=== PATIENT | female | born 1930 | race Caucasian/White ===

== ENCOUNTER 2016-07-06 10:03 | Day surgery (SDC) | payer MEDICARE, OTHER ==
[~2016-07-06] VITALS: Ht 152.4 cm
--- NOTE | 2016-07-07 08:12 | OR ---
ADMIT: 07/06/2016 RM/LOC: [facility] MR#: [id number] [address] [facility] [address] [place] [phone] YUSUF SAMAYOA [address] [place] [address] Operative/Delivery Room Report SEX: F AGE: 86 : 1930 SURGERY DATE: 07/06/2016 SURGEON: Quang Bruner MD SPECIAL SERVICES DIRECTOR: None. PREOPERATIVE DIAGNOSES: 1. Lumbar spondylosis. 2. Lumbago. POSTOPERATIVE DIAGNOSES: 1. Lumbar spondylosis. 2. Lumbago. PROCEDURE PERFORMED: Bilateral lumbar medial branch block at L3, L4, L5, and S1 levels. INDICATION FOR THE PROCEDURE: The patient is a pleasant female with history of chronic low back pain secondary to above-mentioned diagnoses, comes here for planned lumbar medial branch block. ANESTHESIA: Local without sedation. ESTIMATED BLOOD LOSS: Zero. COMPLICATIONS: None immediately evident. DESCRIPTION OF THE PROCEDURE: After the patient was seen in the preoperative area, vital signs were taken. Prior to the procedure, the risks, benefits, and alternative therapies were discussed at length. The patient's consent was obtained and updated. The patient was taken to the fluoroscopy suite and placed on the fluoroscopy table in a prone position. Pressure points were padded to comfort. Monitors were applied and a timeout performed. The lumbosacral area was prepped and draped sterilely using ChloraPrep. C-arm fluoroscopy was then brought in to identify the junction of the pedicular and transverse process. Then lidocaine 1% was applied; approximately 1 mL was used to anesthetize the skin and underlying subcutaneous tissue at bilateral L3, L4, L5 and S1 levels. At each level, a 3.5 inch 22-gauge spinal needle was used. The needle was then advanced to make contact with the superior articular facet at each level, and then needle was placed between the junction ADMIT: 07/06/2016 RM/LOC: [facility] MR#: [id number] [address] [facility] [address] [place] [phone] SAMAYOA YUSUF Claudia [address] [place] [address] Operative/Delivery Room Report SEX: F AGE: 86 : 1930 of the superior articular facet and the transfer process. Then the patient received 0.5 mL of 0.25% Marcaine with approximately 40 mg of Depo-Medrol at each level. The patient had reproduction of typical pain at each level. Then we moved on to the left side; we did the same procedure. The patient tolerated the procedure well. The patient was brought to the PACU where she recovered nicely without any complication. PLAN: The patient was examined after 20 minutes and had 60% reduction of pain. Range of motion, mainly extension, went from 10 degrees of extension to 20 degrees of extension. Discharge instructions were given. Followup as scheduled. The patient was discharged with a ambulette driver. Quang Bruner MD/ ernesto JOB #: [id number] CC: Quang Bruner, Attending Physician Ye Parra, Family Physician
== END 2016-07-06 12:40 | disposition home or self-care (01) ==
LOC: SSS 10:03
PROC: BR16YZZ Fluoroscopy of Lumbar Facet Joint(s) using Other Contrast (ICD-10-PCS; principal; 2016-07-06)
PROC: 3E0T33Z Introduction of Anti-inflammatory into Peripheral Nerves and Plexi, Percutaneous Approach (ICD-10-PCS; principal; 2016-07-06)
PROC: 3E0T3BZ Introduction of Anesthetic Agent into Peripheral Nerves and Plexi, Percutaneous Approach (ICD-10-PCS; principal; 2016-07-06)
DX: G89.29 Other chronic pain (principal); M47.816 Spondylosis without myelopathy or radiculopathy, lumbar region; G56.03 Carpal tunnel syndrome, bilateral upper limbs; M54.16 Radiculopathy, lumbar region; M48.06 Spinal stenosis, lumbar region; M46.1 Sacroiliitis, not elsewhere classified; Z88.6 Allergy status to analgesic agent; Z88.8 Allergy status to other drugs, medicaments and biological substances; Z79.899 Other long term (current) drug therapy

== ENCOUNTER 2016-07-20 08:25 | Day surgery (SDC) | payer MEDICARE, OTHER ==
[~2016-07-20] VITALS: Ht 152.4 cm; Wt 61.3 kg
--- NOTE | 2016-07-21 08:10 | OR ---
ADMIT: 07/20/2016 RM/LOC: [facility] MR#: [id number] [address] [facility] [address] [place] [phone] YUSUF SAMAYOA [address] [place] [address] Operative/Delivery Room Report SEX: F AGE: 86 : 1930 SURGERY DATE: 07/20/2016 SURGEON: Quang Bruner MD MACHINIST CLASS B: None. PREOPERATIVE DIAGNOSES: 1. Low back pain. 2. Lumbar spondylosis. POSTOPERATIVE DIAGNOSES: 1. Low back pain. 2. Lumbar spondylosis. PROCEDURE PERFORMED: Bilateral L3, L4, L5, and S1 medial branch blocks. INDICATION FOR THE PROCEDURE: The patient is a pleasant female with history of chronic low back pain secondary to above-mentioned diagnoses comes here for planned bilateral lumbar medial branch block. ANESTHESIA: Local without sedation. ESTIMATED BLOOD LOSS: Zero. COMPLICATIONS: None immediately evident. DESCRIPTION OF THE PROCEDURE: After the patient was seen in the preoperative area, vital signs were taken. Prior to the procedure, the risks, benefits, and alternative therapies were discussed at length. The patient's consent was obtained and updated. The patient was taken to the fluoroscopy suite and placed on the fluoroscopy table in a prone position. Pressure points were padded to comfort. Monitors were applied and a timeout performed. The lumbosacral area was prepped and draped sterilely using ChloraPrep. C-arm fluoroscopy was then brought in to identify the junction of the pedicular and transverse process. Then lidocaine 1% was applied; approximately 1 mL was used to anesthetize the skin and underlying subcutaneous tissue at bilateral L3, L4, L5 and S1 levels. At each level, a 3.5 inch 22-gauge spinal needle was used. The needle was then advanced to make contact with the superior articular facet at each level, and then needle was placed between the junction ADMIT: 07/20/2016 RM/LOC: [facility] MR#: [id number] [address] [facility] [address] [place] [phone] YUSUF SAMAYOA [facility] [place] [address] Operative/Delivery Room Report SEX: F AGE: 86 : 1930 of the superior articular facet and the transfer process. Then the patient received 0.5 mL of 0.25% Marcaine with approximately 40 mg of Depo-Medrol at each level. The patient had reproduction of her typical pain at each level. Then we moved on to the left side and repeated the same procedure. The patient tolerated the procedure well. The patient was brought to the PACU where she recovered nicely without any complication. PLAN: The patient was examined after 20 minutes and had 60% reduction of pain. Range of motion, mainly extension, went from 10 degrees of extension to 15 degrees of extension. Discharge instructions were given. Followup as scheduled. The patient was discharged with a team cdl driver. Quang Bruner MD/ ernesto JOB #: [id number] CC: Quang Bruner, Attending Physician Ye Parra, Family Physician
== END 2016-07-20 10:26 | disposition home or self-care (01) ==
LOC: SSS 08:25
PROC: BR16YZZ Fluoroscopy of Lumbar Facet Joint(s) using Other Contrast (ICD-10-PCS; principal; 2016-07-20)
PROC: 3E0T3BZ Introduction of Anesthetic Agent into Peripheral Nerves and Plexi, Percutaneous Approach (ICD-10-PCS; principal; 2016-07-20)
PROC: 3E0T33Z Introduction of Anti-inflammatory into Peripheral Nerves and Plexi, Percutaneous Approach (ICD-10-PCS; principal; 2016-07-20)
DX: G89.29 Other chronic pain (principal); M47.26 Other spondylosis with radiculopathy, lumbar region; M48.06 Spinal stenosis, lumbar region; Z79.899 Other long term (current) drug therapy; Z88.6 Allergy status to analgesic agent

== ENCOUNTER 2016-08-09 07:54 | Day surgery (SDC) | payer MEDICARE, OTHER ==
[~2016-08-09] VITALS: Ht 152.4 cm; Wt 63.0 kg
--- NOTE | 2016-08-11 08:14 | OR ---
ADMIT: 08/09/2016 RM/LOC: [facility] MR#: [id number] [address] [place] [phone] YUSUF SAMAYOA [address] [address] Operative/Delivery Room Report SEX: F AGE: 86 : 1930 SURGERY DATE: 08/09/2016 SURGEON: Quang Bruner MD SLITTER CUT OFF OPERATOR: None. PREPROCEDURE DIAGNOSES: 1. Lumbar spondylosis. 2. Lumbago. POSTPROCEDURE DIAGNOSES: 1. Lumbar spondylosis. 2. Lumbago. PROCEDURE PERFORMED: Right L3, L4, L5 and S1 radiofrequency thermocoagulation. INDICATIONS FOR PROCEDURE: The patient is a pleasant female with history of chronic low back pain secondary to above-mentioned diagnoses comes here for planned right-sided lumbar radiofrequency ablation. ANESTHESIA: Local without sedation. ESTIMATED BLOOD LOSS: Zero. COMPLICATIONS: None immediately evident. DESCRIPTION OF THE PROCEDURE: After the patient was seen in the preoperative area, vitals signs were taken. Prior to the procedure, the risks, benefits, and alternative therapies were discussed at length. Patient consent was obtained and updated. The patient was taken to the fluoroscopy suite and placed on the fluoroscopy table in the prone position. Pressure points were padded to comfort, monitors applied, and a timeout performed. ADMIT: 08/09/2016 RM/LOC: [facility] MR#: [id number] [address] [place] [id number] YUSUF SAMAYOA [address] [id number] Operative/Delivery Room Report SEX: F AGE: 86 : 1930 Fluoroscopy was brought in to identify the transverse process of the right L3, L4, L5 and S1. To anesthetize the skin, a spinal cannula was placed near the junction of pedicle and transverse process. Once we obtained appropriate parameters for sensory motor testing, we proceeded with radiofrequency thermocoagulation at each level, which consisted of 80 degrees for 90 seconds. The patient tolerated the procedure well. The patient did not feel any stimulation below her knees. The patient was discharged to post anesthesia care without any immediate complications. PLAN: Discharge instructions were given, followup scheduled. The patient was discharged home with a mail truck driver. Quang Bruner MD/ ernesto JOB #: [id number] CC: Quang Bruner, Attending Physician Ye Parra, Family Physician
== END 2016-08-09 10:08 | disposition home or self-care (01) ==
LOC: SSS 07:54
DX: G89.29 Other chronic pain (principal); M47.816 Spondylosis without myelopathy or radiculopathy, lumbar region; Z79.899 Other long term (current) drug therapy; Z88.5 Allergy status to narcotic agent; Z88.6 Allergy status to analgesic agent

== ENCOUNTER 2016-08-23 07:57 | Day surgery (SDC) | payer MEDICARE, OTHER ==
[~2016-08-23] VITALS: Ht 152.4 cm
--- NOTE | 2016-08-25 08:23 | OR ---
ADMIT: 08/23/2016 RM/LOC: [facility] MR#: [id number] [address] [place] [phone] YUSUF SAMAYOA [address] [id number] Operative/Delivery Room Report SEX: F AGE: 86 : 1930 SURGERY DATE: 08/23/2016 SURGEON: Quang Bruner MD DRY WALL SPRAYER: None. PREPROCEDURE DIAGNOSES: 1. Lumbar spondylosis. 2. Lumbago. POSTPROCEDURE DIAGNOSES: 1. Lumbar spondylosis. 2. Lumbago. PROCEDURE PERFORMED: Left L3, L4, L5, and S1 radiofrequency thermocoagulation. INDICATIONS FOR PROCEDURE: The patient is a pleasant female with history of chronic low back secondary to above-mentioned diagnoses comes here for planned left-sided lumbar radiofrequency ablation. ANESTHESIA: Local without sedation. ESTIMATED BLOOD LOSS: Zero. COMPLICATIONS: None immediately evident. DESCRIPTION OF THE PROCEDURE: After the patient was seen in the preoperative area, vitals signs were taken. Prior to the procedure, the risks, benefits, and alternative therapies were discussed at length. Patient consent was obtained and updated. The patient was taken to the fluoroscopy suite and placed on the fluoroscopy table in the prone position. Pressure points were padded to comfort, monitors applied, and a timeout performed. ADMIT: 08/23/2016 RM/LOC: [facility] MR#: [id number] [address] [place] [phone] YUSUF SAMAYOA [address] [address] Operative/Delivery Room Report SEX: F AGE: 86 : 1930 Fluoroscopy was brought in to identify the transverse process of the left- sided L3, L4, L5 and S1. To anesthetize the skin, a spinal cannula was placed near the junction of pedicle and transverse process. Once we obtained appropriate parameters for sensory motor testing, we proceeded with radiofrequency thermocoagulation at each level, which consisted of 80 degrees for 90 seconds. The patient tolerated the procedure well. The patient did not feel any stimulation below her knees. The patient was discharged to post anesthesia care without any immediate complications. PLAN: Discharge instructions were given, followup scheduled. The patient was discharged home with a lease purchase truck driver. Quang Bruner MD/ ernesto JOB #: [id number] CC: Quang Bruner, Attending Physician Ye Parra, Family Physician
== END 2016-08-23 10:20 | disposition home or self-care (01) ==
LOC: SSS 07:57
DX: G89.29 Other chronic pain (principal); M47.816 Spondylosis without myelopathy or radiculopathy, lumbar region; Z88.5 Allergy status to narcotic agent; Z79.899 Other long term (current) drug therapy; Z88.8 Allergy status to other drugs, medicaments and biological substances; Z88.6 Allergy status to analgesic agent